=== PATIENT | female | born 2000 | race Caucasian/White ===

== ENCOUNTER 2019-09-02 11:43 | Emergency (ER) | payer BC ==
--- NOTE | 2019-09-02 13:36 | RAD REPORT ---
EXAM DESCRIPTION: CT - Head Brain Wo Cont - 09/02/2019 1:17 pm CLINICAL HISTORY: Dizziness COMPARISON: None. TECHNIQUE: Computed axial tomography of the head was obtained. IV contrast was not requested. All CT scans are performed using dose optimization technique as appropriate and may include automated exposure control or mA/KV adjustment according to patient size. FINDINGS: An intracranial bleed is not seen . The ventricles are normal in caliber. No extra-axial fluid collection is noted. Cerebellar tonsillar ectopia . [id number] ethmoid sinusitis IMPRESSION: Cerebellar tonsillar ectopia Cuch-[id number] ethmoid sinusitis No acute intracranial abnormality is seen. If patient's symptoms persist MRI of the brain would be r ecommended.
[2019-09-02] MEDS ORDERED: MECLIZINE HCL 12.5 MG TAB ONE (13:43)
[2019-09-02] MEDS ORDERED: ONDANSETRON 4 MG (ODT) TAB ONE (13:44)
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
--- NOTE | 2019-09-02 15:35 | EDPHYS ---
Physician Documentation [facility] Name: Haley Nugent Age: 19 yrs Sex: Female : 2000 Arrival Date: 09/02/2019 Time: 11:47 Bed 13 Private MD: ED Physician Abdi Arnett HPI: 09/01 12:47 This 19 yrs old Female presents to ER via Ambulatory with complaints of jmm Nausea, Dizziness. 12:47 The patient presents to the emergency department with nausea, vomiting. Onset: The jmm symptoms/episode began/occurred acutely, today. Possible causes: unknown. The symptoms are aggravated by movement, The symptoms are alleviated by remaining still. This is a 19 year old female with a history of chiaria malformation that presents to the ED with complaints of acute onset dizziness which occurred earlier today. patient states symptoms are worsened with movement. patient states she was treated for a strep infection less than a month ago. dizziness described as the room spinning. . Historical: - Allergies: 12:01 No Known Allergies; ss - Home Meds: 12:01 None [Active]; ss - PMHx: 12:01 None; ss - PSHx: 12:01 None; ss - Immunization history:: Adult Immunizations up to date. - Social history:: Smoking status: Patient denies any tobacco usage or history of. ROS: 12:47 Constitutional: Negative for fever, chills, and weight loss, Cardiovascular: Negative jmm for chest pain, palpitations, and edema, Respiratory: Negative for shortness of breath, cough, wheezing, and pleuritic chest pain. 12:47 Neuro: Positive for dizziness. 12:47 All other systems are negative. Exam: 12:47 Constitutional: This is a well developed, well nourished patient who is awake, alert, jmm and in no acute distress. Head/Face: atraumatic. 12:47 ENT: Moist Mucus Membranes Neck: Trachea midline, Supple Chest/axilla: Normal chest wall appearance and motion. Cardiovascular: Regular rate and rhythm. No edema appreciated Respiratory: Normal respirations, no respiratory distress appreciated Abdomen/GI: Non distended, soft Back: Normal ROM Skin: General appearance color normal MS/ Extremity: Moves all extremities, no obvious deformities appreciated, no edema noted to the lower extremities 12:47 Eyes: Nystagmus: fatigable horizontal nystagmus on gaze to the right. . 12:47 Neuro: Orientation: is normal, Mentation: is normal, Memory: is normal, Cerebellar function: normal finger to nose testing, heel to santos testing is normal, Motor: is normal. 12:47 Psych: Behavior/mood is pleasant, cooperative. Vital Signs: 11:59 BP 119 / 87; Pulse 76; Resp 14; Temp 97.8(TE); Pulse Ox 100% on R/A; Weight 44.45 kg; ss Height 5 ft. 4 in. (162.56 cm); Pain 0/10; 14:30 BP 111 / 77; Pulse 60; Resp 17; Pulse Ox 99% on R/A; tw2 15:26 BP 111 / 81; Pulse 57; Resp 17; Pulse Ox 100% on R/A; tw2 11:59 Body Mass Index 16.82 (44.45 kg, 162.56 cm) ss MDM: 12:47 Patient medically screened. [facility] 15:33 Data reviewed: vital signs, nurses notes. Counseling: I had a detailed discussion with [facility] the patient and/or guardian regarding: the historical points, exam findings, and any diagnostic results supporting the discharge/admit diagnosis, lab results, radiology results, the need for outpatient follow up, to return to the emergency department if symptoms worsen or persist or if there are any questions or concerns that arise at home. 15:33 ED course: Patient states feeling much better after meclizine. Cerebellar exam is [facility] normal. I do not suspect central origin. Patient is advised to follow up with ent. Patient is otherwise given strict return precautions. patient understood and agrees with the plan of care. . 09/01 13:01 Order name: CT Head Brain wo Cont; Complete Time: 13:42 [facility] Administered Medications: 13:54 Drug: Meclizine 50 mg Route: PO; tw2 13:54 Drug: Ondansetron (Zofran) 4 mg Route: PO; tw2 Disposition: 16:30 Co-signature as Attending Physician, Abdi Arnett MD I agree with the assessment and [facility] plan of care. Disposition: 09/02/19 15:34 Discharged to Home. Impression: Acute ethmoidal sinusitis, Dizziness and giddiness. - Condition is Stable. - Discharge Instructions: Dizziness, Sinusitis, Adult, Vertigo, [id number]. - Prescriptions for Meclizine 25 mg Oral Tablet - take 1 tablet by ORAL route every 8 hours As needed; 30 tablet. Augmentin 875- 125 mg Oral Tablet - take 1 tablet by ORAL route every 12 hours for 10 days; 20 tablet. - Medication Reconciliation Form, Thank You Letter, Antibiotic Education, Prescription Opioid Use, Work release form form. - Follow up: Private Physician; When: 2 - 3 days; Reason: Recheck today's complaints, Continuance of care, Re-evaluation by your physician. Follow up: Daphnie Gonzales MD; When: 2 - 3 days; Reason: Recheck today's complaints, Continuance of care, Re-evaluation by your physician. Signatures: Dispatcher [employer] EDAbdi Orellana MD MD cha Mickail, Joel, PA PA jmm Calderon, Audri, RN RN aa5 Pia Wilson RN RN ss Mikayla Mendez RN RN tw2 Corrections: (The following items were deleted from the chart) 15:37 15:34 09/02/2019 15:34 Discharged to Home. Impression: Acute ethmoidal sinusitis; eduar Dizziness and giddiness. Condition is Stable. Forms are Work release form, Medication Reconciliation Form, Thank You Letter, Antibiotic Education, Prescription Opioid Use. Follow up: Private Physician; When: 2 - 3 days; Reason: Recheck today's complaints, Continuance of care, Re-evaluation by your physician. [facility] 16:12 15:37 09/02/2019 15:34 Discharged to Home. Impression: Acute ethmoidal sinusitis; aa5 Dizziness and giddiness. Condition is Stable. Discharge Instructions: Dizziness, Sinusitis, Adult, Vertigo, [id number]. Prescriptions for Meclizine 25 mg Oral Tablet - take 1 tablet by ORAL route every 8 hours As needed; 30 tablet. and Forms are Work release form, Medication Reconciliation Form, Thank You Letter, Antibiotic Education, Prescription Opioid Use. Follow up: Private Physician; When: 2 - 3 days; Reason: Recheck today's complaints, Continuance of care, Re-evaluation by your physician. Follow up: Daphnie Gonzales; When: 2 - 3 days; Reason: Recheck today's complaints, Continuance of care, Re-evaluation by your physician. jmm
[2019-09-02 16:41] VITALS: TEMP 97.8
[2019-09-02 16:43] VITALS: BP 111/81; O2SAT 100
== END 2019-09-02 16:12 | disposition home or self-care (01) ==
LOC: ER 11:43
DX: J01.20 Acute ethmoidal sinusitis, unspecified (principal)
CPT/HCPCS: 70450; 99283; J8597

== ENCOUNTER 2020-10-09 09:36 | Emergency (ER) | payer BC ==
[2020-10-09 12:24] LABS: SARS-COV-2 RT PCR NEGATIVE (NEGATIVE)
--- NOTE | 2020-10-09 12:32 | ER ---
Nurse's Notes [facility] Name: Haley Nugent Age: 20 yrs Sex: Female : 2000 Arrival Date: 10/09/2020 Time: 09:40 Bed 14 Private MD: Diagnosis: Acute pharyngitis Presentation: 10/09 09:55 Chief complaint: Patient states: "I think I have strep again. My mom think I have ss COVID. I had left over clindamycin when I had strep last so I took those." Pt reports that throat began hurting yesterday morning and also wants to have possible insect bites to R lower leg checked as well. Coronavirus screen: Client denies travel out of the [place] in the last 14 days. Ebola Screen: Patient denies exposure to infectious person. Patient denies travel to an Ebola-affected area in the 21 days before illness onset. Initial Sepsis Screen: Does the patient meet any 2 criteria? No. Patient's initial sepsis screen is negative. Does the patient have a suspected source of infection? No. Patient's initial sepsis screen is negative. Risk Assessment: Do you want to hurt yourself or someone else? Patient reports no desire to harm self or others. Onset of symptoms was October 08, 2020. 09:55 Method Of Arrival: Ambulatory 09:55 Acuity: MARYANN 4 ss Historical: - Allergies: 09:57 No Known Allergies; ss - Home Meds: 09:57 None [Active]; ss - PMHx: 09:58 Depression; ss - PSHx: 09:57 None; ss - Immunization history:: Adult Immunizations up to date. - Social history:: Smoking status: Patient denies any tobacco usage or history of. Screenin:40 Abuse screen: Denies threats or abuse. Denies injuries from another. Nutritional tr6 screening: No deficits noted. Tuberculosis screening: No symptoms or risk factors identified. Fall Risk None identified. Assessment: 12:39 General: Appears in no apparent distress. comfortable, Behavior is calm, cooperative, tr6 appropriate for age. Pain: Denies pain. Neuro: No deficits noted. Cardiovascular: No deficits noted. Respiratory: Airway is patent Respiratory effort is even, unlabored, relaxed, Breath sounds are clear Parent/caregiver reports the patient having pt reports runny nose and sore throat. GI: No deficits noted. : No deficits noted. EENT: Throat pt reports sore throat. Derm: No deficits noted. Musculoskeletal: No deficits noted. Vital Signs: 09:55 BP 146 / 78; Pulse 110; Resp 14; Temp 98.6(TE); Pulse Ox 99% on R/A; Weight 48.53 kg; Height 5 ft. 4 in. (162.56 cm); Pain 7/10; 09:55 Body Mass Index 18.37 (48.53 kg, 162.56 cm) ED Course: 09:40 Patient arrived in ED. rg4 09:57 Triage completed. 09:57 Arm band placed on right wrist. 10:31 [facility] 10:31 Abdi Arnett MD is Attending Physician. [facility] 11:24 Radha Enriquez, RN is Primary Nurse. tr6 12:40 Patient has correct armband on for positive identification. Bed in low position. Call tr6 light in reach. Side rails up X 1. Door closed. Noise minimized. Visitors limited. Lights dimmed. Warm blanket given. 12:40 No provider procedures requiring assistance completed. Patient did not have IV access tr6 during this emergency room visit. Administered Medications: No medications were administered Outcome: 12:31 Discharge ordered by . [facility] 12:40 Discharged to home ambulatory. tr6 12:40 Condition: good 12:40 Discharge instructions given to patient, Instructed on discharge instructions, follow up and referral plans. no drinking with medication, safety practices, Demonstrated understanding of instructions, follow-up care, medications, Prescriptions given X 1. 12:41 Patient left the ED. tr6 Signatures: Jaitn Pruett PA PA jmm Smirch, Shelby, RN RN Misty Ashton rg4 Radha Enriquez, RN RN tr6 Corrections: (The following items were deleted from the chart) 09:58 09:57 PMHx: None; [facility]
--- NOTE | 2020-10-09 12:32 | EDPHYS ---
Physician Documentation [facility] Name: Haley Nugent Age: 20 yrs Sex: Female : 2000 Arrival Date: 10/09/2020 Time: 09:40 Bed 14 Private MD: ED Physician Abdi Arnett HPI: 10/09 11:06 This 20 yrs old Female presents to ER via Ambulatory with complaints of jmm Stuffy Nose, Sore Throat. 11:06 The patient presents with sore throat. Onset: The symptoms/episode began/occurred jmm gradually, 1 day(s) ago. Associated signs and symptoms: Pertinent positives: shortness of breath, Pertinent negatives: fever. This is a 20 year old female with a history of depression that presents to the ED with complaints of sore throat beginning yesterday along with sinus drainage. Denies fever, vomiting. States having some sob due to swelling in the throat. . Historical: - Allergies: 09:57 No Known Allergies; ss - Home Meds: 09:57 None [Active]; ss - PMHx: 09:58 Depression; ss - PSHx: 09:57 None; ss - Immunization history:: Adult Immunizations up to date. - Social history:: Smoking status: Patient denies any tobacco usage or history of. ROS: 11:06 Constitutional: Negative for fever, chills, and weight loss. jmm 11:06 ENT: Positive for sinus congestion, sore throat. 11:06 Respiratory: Negative for cough. 11:06 All other systems are negative. Exam: 11:06 Constitutional: This is a well developed, well nourished patient who is awake, alert, jmm and in no acute distress. Head/Face: atraumatic. Eyes: EOMI, no conjunctival erythema appreciated 11:06 Cardiovascular: Regular rate and rhythm. No edema appreciated Respiratory: Normal respirations, no respiratory distress appreciated Abdomen/GI: Non distended, soft Back: Normal ROM Skin: General appearance color normal MS/ Extremity: Moves all extremities, no obvious deformities appreciated, no edema noted to the lower extremities Neuro: Awake and alert, normal gait Psych: Behavior is normal, Mood is normal, Patient is cooperative and pleasant 11:06 ENT: Posterior pharynx: erythema, that is moderate. Vital Signs: 09:55 BP 146 / 78; Pulse 110; Resp 14; Temp 98.6(TE); Pulse Ox 99% on R/A; Weight 48.53 kg; ss Height 5 ft. 4 in. (162.56 cm); Pain 7/10; 09:55 Body Mass Index 18.37 (48.53 kg, 162.56 cm) MDM: 11:06 Patient medically screened. [facility] 12:29 Data reviewed: vital signs, nurses notes. Counseling: I had a detailed discussion with eduar the patient and/or guardian regarding: the historical points, exam findings, and any diagnostic results supporting the discharge/admit diagnosis, lab results, the need for outpatient follow up, to return to the emergency department if symptoms worsen or persist or if there are any questions or concerns that arise at home. ED course: Patient is alert and non toxic in appearance in the ED. No signs of resp distress. Advised to follow up with pcp and otherwise given strict return precautions. patient understood and agrees with the plan of care. . 10/09 11:04 Order name: Strep; Complete Time: 12:39 [facility] 10/09 12:25 Order name: COVID-19/FLU A+B; Complete Time: 12:29 EDMS Administered Medications: No medications were administered Disposition: 10/10 07:56 Co-signature as Attending Physician, Abdi Arnett MD I agree with the assessment and [facility] plan of care. Disposition: 10/09/20 12:31 Discharged to Home. Impression: Acute pharyngitis. - Condition is Stable. - Discharge Instructions: Pharyngitis. - Prescriptions for Augmentin 875- 125 mg Oral Tablet - take 1 tablet by ORAL route every 12 hours for 10 days; 20 tablet. - Medication Reconciliation Form, Thank You Letter, Antibiotic Education, Prescription Opioid Use, Work release form form. - Follow up: Private Physician; When: 2 - 3 days; Reason: Recheck today's complaints, Continuance of care, Re-evaluation by your physician. Signatures: Dispatcher [employer] EDMS Abdi Arnett MD MD cha Mickail, Joel, PA PA Pia Paz RN RN Radha Enriquez RN RN tr6 Corrections: (The following items were deleted from the chart) 10/09 09:58 09:57 PMHx: None; [facility] 11:39 11:05 Influenza Screen (A \T\ B)+BA.LAB.BRZ ordered. EDMS EDMS 11:39 11:05 CORONAVIRUS+MR.LAB.BRZ ordered. EDFL EDMS 12:41 12:31 10/09/2020 12:31 Discharged to Home. Impression: Acute pharyngitis. Condition is tr6 Stable. Forms are Medication Reconciliation Form, Thank You Letter, Antibiotic Education, Prescription Opioid Use. Follow up: Private Physician; When: 2 - 3 days; Reason: Recheck today's complaints, Continuance of care, Re-evaluation by your physician. eduar
[2020-10-09 12:56] VITALS: BP 146/78; TEMP 98.6; O2SAT 99
== END 2020-10-09 12:41 | disposition home or self-care (01) ==
LOC: ER 09:36
DX: J02.9 Acute pharyngitis, unspecified (principal); Z20.822 Contact with and (suspected) exposure to COVID-19
CPT/HCPCS: 87070; 87081; 0240U; 99282

== ENCOUNTER 2021-01-01 16:09 | Emergency (ER) | payer BC ==
--- NOTE | 2021-01-01 18:47 | EDPHYS ---
Physician Documentation [facility] Name: Haley Nugent Age: 20 yrs Sex: Female : 2000 Arrival Date: 01/01/2021 Time: 16:14 Bed DX3 Private MD: ED Physician Abdi Arnett HPI: 01/01 18:56 This 20 yrs old Female presents to ER via Ambulatory with complaints of jr8 Allergic Reaction, FIRE ANTS BITES ON HANDS. 18:56 This is a 20-year-old female patient who presented to the emergency room after being jr8 bit by ants yesterday. Stated that she normally has mild reactions to insect bites but that over the night had had increased swelling and erythema to her both of her hands along with continued itching despite [id number] Benadryl and ointments.. 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 Flu vaccine is up to date. - Social history:: Smoking status: Reported history of juuling and/or vaping. ROS: 18:56 Eyes: Negative for injury, pain, redness, and discharge, ENT: Negative for injury, jr8 pain, and discharge, Neck: Negative for injury, pain, and swelling, Cardiovascular: Negative for chest pain, palpitations, and edema, Respiratory: Negative for shortness of breath, cough, wheezing, and pleuritic chest pain, Abdomen/GI: Negative for abdominal pain, nausea, vomiting, diarrhea, and constipation, Back: Negative for injury and pain, MS/Extremity: Negative for injury and deformity, Neuro: Negative for headache, weakness, numbness, tingling, and seizure. 18:56 Skin: Positive for erythema, swelling, of the right hand and left hand. Exam: 18:56 Constitutional: This is a well developed, well nourished patient who is awake, alert, jr8 and in no acute distress. Cardiovascular: Regular rate and rhythm with a normal S1 and S2. No gallops, murmurs, or rubs. Normal PMI, no JVD. No pulse deficits. Respiratory: Lungs have equal breath sounds bilaterally, clear to auscultation and percussion. No rales, rhonchi or wheezes noted. No increased work of breathing, no retractions or nasal flaring. Skin: Warm, dry with normal turgor. Normal color with no rashes, no lesions, and no evidence of cellulitis. Neuro: Awake and alert, GCS 15, oriented to person, place, time, and situation. Cranial nerves II-XII grossly intact. Motor strength 5/5 in all extremities. Sensory grossly intact. Cerebellar exam normal. Normal gait. 18:56 Musculoskeletal/extremity: Extremities: grossly normal except: noted in the left hand and right hand: Patient has noticeable nonpustulous ant bites to the left and right dorsal hands and wrists. Moderate swelling to the lateral aspect of the hand noted with erythema.. Vital Signs: 17:00 BP 137 / 101; Pulse 86; Resp 17; Temp 98.2; Pulse Ox 100% ; Height 5 ft. 4 in. (162.56 ll1 cm); Pain 7/10; 19:50 BP 128 / 78; Pulse 78; Resp 20; kg MDM: 18:22 Patient medically screened. jr8 18:45 Data reviewed: vital signs, nurses notes, and as a result, I will discharge patient. jr8 Data interpreted: Pulse oximetry: on room air is 100 %. Interpretation: normal. Counseling: I had a detailed discussion with the patient and/or guardian regarding: the historical points, exam findings, and any diagnostic results supporting the discharge/admit diagnosis, the need for outpatient follow up, a family practitioner, to return to the emergency department if symptoms worsen or persist or if there are any questions or concerns that arise at home. Administered Medications: 19:42 Drug: SOLU-Medrol (methylPREDNISolone sodium succinate) 125 mg Route: IM; Site: right kg gluteus; 19:56 Follow up: Response: No adverse reaction kg Disposition: 01/02 08:13 Co-signature as Attending Physician, Abdi Arnett MD I agree with the assessment and savanah plan of care. Disposition Summary: 01/01/21 18:46 Discharge Ordered Location: Home jr8 Problem: new jr8 Symptoms: are unchanged jr8 Condition: Stable jr8 Diagnosis - Ant bite jr8 - Allergic Reaction jr8 Followup: jr8 - With: Private Physician - When: 2 - 3 days - Reason: Recheck today's complaints, Continuance of care, Re-evaluation by your physician Discharge Instructions: - Discharge Summary Sheet jr8 - Anaphylactic Reaction, Adult jr8 Forms: - Medication Reconciliation Form jr8 - Thank You Letter jr8 - Antibiotic Education jr8 - Prescription Opioid Use jr8 Prescriptions: - Prednisone 20 mg Oral Tablet - take 1 tablet by ORAL route once daily for 5 days; 5 tablet; Refills: 0, jr8 Product Selection Permitted Signatures: Abdi Arnett MD MD cha Roszak, Josh, PA PA jr8 Devang Hubbard, RN RN ll1 Angelita Rogers RN RN kg
--- NOTE | 2021-01-01 18:47 | ER ---
Nurse's Notes [facility] Name: Haley uNgent Age: 20 yrs Sex: Female : 2000 Arrival Date: 01/01/2021 Time: 16:14 Bed DX3 Private MD: Diagnosis: Ant bite;Allergic Reaction Presentation: 01/01 17:00 Chief complaint: Patient states: Ant bites to both hands last night. Today, both hands ll1 are red and swollen. No fever, but hands feel hot. Coronavirus screen: Vaccine status: Patient reports being unvaccinated. Client denies travel out of the [place] in the last 14 days. At this time, the client does not indicate any symptoms associated with coronavirus-19. Ebola Screen: Patient denies travel to an Ebola-affected area in the 21 days before illness onset. Onset: The symptoms/episode began/occurred yesterday. Anaphylaxis evaluation, no signs or symptoms of anaphylaxis were noted. Initial Sepsis Screen: Does the patient meet any 2 criteria? No. Patient's initial sepsis screen is negative. Does the patient have a suspected source of infection? Yes: Skin breakdown/wound. Risk Assessment: Do you want to hurt yourself or someone else? Patient reports no desire to harm self or others. Onset of symptoms was December 31, 2020. 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 Flu vaccine is up to date. - Social history:: Smoking status: Reported history of juuling and/or vaping. Screenin:27 Abuse screen: Denies threats or abuse. Denies injuries from another. Nutritional kg screening: No deficits noted. Tuberculosis screening: No symptoms or risk factors identified. Fall Risk None identified. Assessment: 18:25 General: Appears in no apparent distress. Behavior is calm, cooperative, appropriate kg for age, quiet. Pain: Complains of pain in Ronal hands Pain currently is 3 out of 10 on a pain scale. Quality of pain is described as throbbing. Respiratory: No deficits noted. Airway is patent Respiratory effort is even, unlabored, relaxed, Breath sounds are clear bilaterally. Derm: Skin is intact, Skin is pink, red, Skin temperature is warm Reports pain that is 3 out of 10 on a pain scale. Throbbing. Vital Signs: 17:00 BP 137 / 101; Pulse 86; Resp 17; Temp 98.2; Pulse Ox 100% ; Height 5 ft. 4 in. (162.56 ll1 cm); Pain 7/10; 19:50 BP 128 / 78; Pulse 78; Resp 20; kg ED Course: 16:14 Patient arrived in ED. ja2 16:58 Arm band placed on. ll1 17:01 Triage completed. ll1 18:22 Fran Diaz PA is PHCP. jr8 18:22 Abdi Arnett MD is Attending Physician. jr8 18:25 Angelita Rogers, RN is Primary Nurse. kg 18:27 Patient has correct armband on for positive identification. kg 18:27 No provider procedures requiring assistance completed. kg 19:56 Patient did not have IV access during this emergency room visit. kg Administered Medications: 19:42 Drug: SOLU-Medrol (methylPREDNISolone sodium succinate) 125 mg Route: IM; Site: right kg gluteus; 19:56 Follow up: Response: No adverse reaction kg Outcome: 18:33 Condition: good kg 18:46 Discharge ordered by . jr8 19:56 Discharged to home ambulatory. kg 19:56 Discharge instructions given to patient, Instructed on discharge instructions, follow up and referral plans. Demonstrated understanding of instructions, follow-up care, medications, Prescriptions given X 1. 19:56 Patient left the ED. kg Signatures: Fran Diaz PA PA jr8 Devang Hubbard RN RN [facility] Angelita Rogers, MARY RN kg Ching Mcfadden [facility]
[2021-01-01] MEDS ORDERED: METHYLPREDNISOLONE 125 MG INJ ONE (20:01)
[2021-01-01 20:06] VITALS: TEMP 98.2; O2SAT 100
[2021-01-01 20:20] VITALS: BP 128/78
== END 2021-01-01 19:56 | disposition home or self-care (01) ==
LOC: ER 16:09
DX: T63.421A Toxic effect of venom of ants, accidental (unintentional), initial encounter (principal)
CPT/HCPCS: 96372; 99283; J2930

== ENCOUNTER 2023-10-15 07:45 | Day surgery (SDC) | payer BC ==
[2023-10-12 11:56] LABS: Absolute Eosinophils 0.3 K/uL (0-0.5); Absolute Lymphocytes (CBC) 1.3 K/uL (0.7-4.9); Absolute Monocytes 0.3 K/uL (0.1-1.3); Absolute Neutrophil 2.1 K/uL (1.8-8.0); Basophils % 0.9 % (0-1.3); Eosinophils % 8.3 % (0-4.4); Hematocrit 41.6 % (36.0-45.0); Hemoglobin 13.8 g/dL (12.0-15.0); Lymphocytes % 32.3 % (15.3-44.8); MCH 31.8 pg (27.0-35.0); MCHC 33.1 g/dL (32.0-36.0); MCV 95.9 fL (80-100); MPV 8.7 fL (7.6-11.3); Monocytes % 7.6 % (3.3-12.3); Neutrophils % 50.9 % (41.7-73.7); Platelets 181 thou/uL (152-406); RBC Red Blood Cell Count 4.34 M/uL (3.86-4.86)
[2023-10-12 12:37] LABS: Specific Gravity 1.024 (1.005-1.030); Sqamous Epithelial 20-50 /HPF (None Seen); Urine Bacteria 20-50 /HPF (<20); Urine Bilirubin NEGATIVE (Negative); Urine Blood Negative (Negative); Urine Clarity Extremely Turbid (Clear); Urine Color Light-Yellow (Yellow); Urine Culture Reflex Order NOT NEEDED; Urine Glucose NEGATIVE (Negative); Urine Ketones NEGATIVE (Negative); Urine Microscopic Reflex YN ORDER UMIC; Urine Nitrite NEGATIVE (Negative); Urine Protein TRACE (Negative); Urine RBC <5 /HPF (None Seen); Urine Urobilinogen Normal (Normal); Urine WBC <5 /HPF (<5); Urine WBC Clump Rare /HPF (None Seen); Urine pH 7.5 (5.0-7.0)
[2023-10-14 09:53] LABS: Specific Gravity 1.022 (1.005-1.030)
[2023-10-15] MEDS ORDERED: FENTANYL CITR 100 MCG/2 ML ONE ×2 (07:53→10:30)
[2023-10-15] MEDS: SCOPOLAMINE HYDROBROMIDE PATCH TD ONE (08:06)
[2023-10-15] MEDS ORDERED: propofoL 200 MG/20 ML VIAL IV ONE (08:38)
[2023-10-15] MEDS ORDERED: ROCURONIUM 50 MG/5 ML VIAL IV ONE (08:39)
[2023-10-15] MEDS ORDERED: LIDOCAINE 2% MPF 5 ML VIAL ONE (08:39)
[2023-10-15] MEDS ORDERED: MIDAZOLAM HCL 2 MG/2 ML INJ ONE (08:39)
[2023-10-15] MEDS ORDERED: ONDANSETRON 4 MG/2 ML VIAL ONE (09:46)
[2023-10-15] MEDS ORDERED: dexAMETHasone 4 MG/ML VIAL ONE (09:46)
[2023-10-15] MEDS: BUPIVACAINE 0.25% PF 30 ML VIAL ONE (09:59)
[2023-10-15] MEDS ORDERED: METHYLENE BLUE 1% 10 ML VIAL ONE (10:04)
[2023-10-15] MEDS ORDERED: KETOROLAC 30 MG/ML INJ ONE (10:55)
[2023-10-15] MEDS ORDERED: GLYCOPYRROLATE 0.2 MG/ML SYR ONE (10:56)
[2023-10-15] MEDS ORDERED: NEOSTIGMINE 1 MG/ML -10 ML VIAL ONE (10:56)
[2023-10-15] MEDS ORDERED: PROMETHAZINE INJ 25 MG/ML AMP IV PRN (11:17)
[2023-10-15] MEDS ORDERED: MEPERIDINE HCL 25 MG/ML SYR IM PRN (11:17)
[2023-10-15] MEDS ORDERED: PROMETHAZINE 25 MG TABLET PO PRN (11:17)
[2023-10-15] MEDS ORDERED: IBUPROFEN 200 MG TAB PO PRN (11:17)
--- NOTE | 2023-10-15 11:23 | P.BOP ---
Preoperative diagnosis: Menorrhagia (AUB-O), Deep dyspareunia, pelvic pain Postoperative diagnosis: same, endometrial polyp, possible endometriosis Primary procedure: Op Hystsc polypectomy,D/C;laprsc chromotubation,endometriosis excision Tow Motor Driver: VALERIY REED Estimated blood loss: min Specimen: Endometrial polyp,EMC,post CDS/Lf lat wall,peritoneal endometriosis Findings: patent tubes,polyp post endometrial wall,endo post CDS,L let wall/USL endo Anesthesia: IVCS Complications: None Transferred to: Recovery Room Condition: Good
[2023-10-15] MEDS: MIDAZOLAM HCL 2 MG/2 ML INJ ONE (11:30)
[2023-10-15] MEDS: HYDROMORPHONE HCL 1 MG/ML INJ ONE (11:45)
[2023-10-15 12:12] VITALS: O2SAT 100
[2023-10-15] MEDS ORDERED: HYDROCODONE/APAP 5/325 MG TAB ONE (12:23)
[2023-10-15] MEDS: HYDROCODONE/APAP 5/325 MG TAB PO PRN (13:06)
[2023-10-15 14:34] VITALS: BP 126/76; TEMP 97.1
--- NOTE | 2023-10-15 21:53 | OP ---
Date of Procedure: 10/15/2023 Surgeon: Carol Lopez MD Transportation Services Representative: Altagracia Pollard Preoperative Diagnoses: Menorrhagia, pelvic pain, deep dyspareunia. Postoperative Diagnoses: Menorrhagia, pelvic pain, deep dyspareunia, endometrial polyp, possible end ometriosis. Procedures Performed: 1.Diagnostic hysteroscopy, which was converted to operative hysteroscopy and polypectomy with dilati on and curettage. 2.Diagnostic laparoscopy, chromotubation, and endometriosis excision. Estimated Blood Loss: Minimal. Complications: No complications. Patient's Condition: Stable. Drains: No drains. Findings: She has an Conner Masters sinus in the left lateral wall between the uterosacral and the la teral wall. In the posterior cul-de-sac, there was an unpigmented lesion, which after chromotubation stained blue, but this appeared to be an endometriotic lesion. Both of these were excised and there was uterosacral endometriosis as well, that was excised. Unrelated other findings: 1.She had descending colon periappendiceal adhesions to the anterior abdominal wall and the right lo wer quadrant. 2.She had significant uterine prolapse on traction with the Allis clamp, the cervix was at 0 (C equa ls 0). 3.Tubes were patent. The upper abdominal surfaces were all unremarkable. Liver, gallbladder, and a ppendix were within normal limits. All visible endometriosis/suspicious lesions were all removed and handed out for permanent pathology. Procedure In Detail: The patient is a 23-year-old, presented with significant pelvic pain, dysmenorr hea, deep dyspareunia, and menorrhagia. After medical treatment and evaluation for a GnRH antagonist , she was offered a diagnostic laparoscopy to make sure that there is a diagnosis of endometriosis an d excision of the endometriosis before she can be placed on a medication. The patient understood her condition, understood her alternatives, and consented for a hysteroscopy, laparoscopy, and possible chromotubation as she has a desire to conceive in the future and if there is any evidence of hydrosal pinx, then we would relieve that. After being re-consented in the preoperative area, she was taken b ack to OR, placed in a supine fashion on the operating table. After general anesthesia was given, sneha was placed in a dorsal lithotomy position using Conner stirrups. Abdomen was prepped with ChloraPre p; vulva, vagina, and perineum with Betadine and time-out was done. No antibiotics were given. SCDs were started and procedure started. After exposing the cervix with a speculum, it was held with a single-tooth tenaculum. The uterus was retroflexed and the endometrial cavity was accessed with the hysteroscope under direct vision. Ther e was a posterior wall endometrial polyp that was clear and the entire cavity was well visualized. B oth tubal ostia were visualized. The scope was removed. The cervix was dilated to 16-Indonesian and then an operative sheath was placed. Using hysteroscopic scissors, the base of the polyp was cut. Then polyp forceps were used through t he operating channel to grasp the polyp and remove it. Then, all the instruments were removed after uterine manipulator was fixed in place, replaced the Nina catheter and allowed it to gravity drainag e. This area was then draped. A 1 cm infraumbilical incision was made with scalpel in a curvilinear fashion after injecting with Ma rcaine. Fascia was incised in a vertical fashion with an 11 blade. The edges were tagged with 0 Cesar ryl sutures. Peritoneum entered sharply. Damien introduced and after adequate insufflation, site of entry was checked and was unremarkable. The upper abdominal surfaces including the liver, gallbladder, peritoneum were all unremarkable. The n, right lateral wall, descending colon, appendix, adhesions to the anterior abdominal wall. Then in ferior to that, defect of the left inguinal canal was noted. The endometriosis dictated in the findi ngs was noted. Chromotubation: 1 ampule of methylene blue was diluted in 100 mL of normal saline and this was injec romario through the uterine manipulator using a 20 cc syringe. Once the tubes were filled promptly, they spilled as well. The pictures were taken. The methylene blue was then cleaned out with irrigation and suction. Endometriosis excision: The peritoneum over the sigmoid colon towards the right paracolic gutter was picked up, incised with scissors, and sharp dissection was performed to excise the endometriotic imp lants on the peritoneum with sharp scissors. The base was cauterized with the help of a [place] bip olar. The left lateral wall ureter was identified, uterosacral ligament was identified, and peritoneum open ed superior to the exit of the ureter from the pelvis and peritoneal dissection conducted to dissect the ureter laterally. Then, the implants were all removed with the peritoneum until the uterosacral ligament here. Whatever was left on the uterosacral ligament, which was a part of the Conner Masters sinus as well was excised completely without detaching the uterosacral from the vaginal apex. After thorough irrigation and suction were performed, there was excellent hemostasis. All the ports were removed. Gas was desufflated. Fascia at the umbilicus was closed with the help of 0 Vicryl in a [id number]-an-[id number] fashion. The tag sutures removed. All skin incisions were closed with the help of 5-0 and 4-0 Monocryl. Skin glue was placed. The other two incisions, 5 ports which were placed, th e skin sites were closed with the help of a single 5-0 Monocryl, then glue was placed. After the Nina and uterine manipulator were removed, the cervix was held with an Allis clamp, and D and C performed with a 0 curette carefully without being too aggressive to the endometrium and the un derlying myometrium. The specimen was handed off for permanent pathology. All the instruments were removed. Instrument, needle, and sponge counts were done and were correct at the end of the case. T he patient tolerated the procedure well. She was recovered from anesthesia and taken to PACU in stab le condition. She will follow up in the office in 1 week. We will confirm with Pathology, but I highly suspect endometriosis. I also recommend that she should see a GI physician for the paracolic adhesions that were present. Pictures were taken and they will be in the patient's chart. SAL/IVIS Voice ID: [id number] Report ID: [id number]
== END 2023-10-15 13:33 | disposition home or self-care (01) ==
LOC: OR 07:45
PROVIDERS: ATTEND Obstetrics & Gynecology
PROC: 0UB94ZZ Excision of Uterus, Percutaneous Endoscopic Approach (ICD-10-PCS; 2023-10-15)
PROC: 0UDB8ZX Extraction of Endometrium, Via Natural or Artificial Opening Endoscopic, Diagnostic (ICD-10-PCS; principal; 2023-10-15 09:00)
DX: N92.1 Excessive and frequent menstruation with irregular cycle (principal); R10.2 Pelvic and perineal pain; N94.12 Deep dyspareunia; N80.3C9 Endometriosis of the uterosacral ligament(s), unspecified side, unspecified depth
CPT/HCPCS: 36415; 81001; 81025; 85025; 86850; 86900; 86901; 88305; J1100; J1170; J2001; J2250; J2405; J2704; J2710; J3010